=== PATIENT | male | born 1945 | race Two or more races ===

== ENCOUNTER → 2016-07-18 | Outpatient (CLI) | payer MEDICARE, OTHER ==
--- NOTE | 2016-07-18 10:31 | RAD ---
Indication chronic knee pain. AP oblique and lateral views of the right knee were obtained. There is suspect mild bony demineralization. There is medial joint space compartment narrowing. An acute bony finding is not seen. There is some mild patellofemoral narrowing. Significant joint fluid is not seen. IMPRESSION: Degenerative change involving the knee
== END | disposition home or self-care (01) ==
LOC: DXRADRC 10:12
PROVIDERS: ATTEND Physician Assistant Medical
DX: M17.11 Unilateral primary osteoarthritis, right knee (principal)
CPT/HCPCS: 73562

== ENCOUNTER → 2017-01-02 | Outpatient (CLI) | payer MEDICARE, OTHER ==
--- NOTE | 2017-01-02 15:01 | RAD ---
EXAM: Renal/retroperitonal ultrasound HISTORY: Diabetic nephropathy. COMPARISON: None. FINDINGS: Ultrasound of the kidneys, bladder and retroperitoneum was performed. The right kidney measures 11.7 cm. Cortical thickness and echogenicity are preserved. There is no hydronephrosis. A cyst at the lower pole measures 3.1 x 2.6 cm and appears benign. Another smaller cyst at the lower pole measures 1.2 x 1.1 cm. The left kidney measures 11.1 cm. Cortical thickness and echogenicity are preserved. There is no hydronephrosis. A benign appearing cyst in the interpolar region measures 2.3 x 2.0 cm. Images of the bladder reveal no gross abnormality. Ureteral jets are seen bilaterally. IMPRESSION: 1. Unremarkable examination of the kidneys. No hydronephrosis. 2. Bilateral benign-appearing renal cysts measure up to 3.1 cm on the right.
== END | disposition home or self-care (01) ==
LOC: US 08:54
PROVIDERS: ATTEND Internal Medicine Nephrology
DX: E11.21 Type 2 diabetes mellitus with diabetic nephropathy (principal); N28.1 Cyst of kidney, acquired
CPT/HCPCS: 76770

== ENCOUNTER → 2017-11-12 | Outpatient (CLI) | payer MEDICARE, OTHER ==
--- NOTE | 2017-11-12 12:54 | RAD ---
EXAM: Renal sonogram. HISTORY: Renal cyst. TECHNIQUE: Sonographic imaging of the kidneys and bladder was performed. COMPARISON: 01/02/2017. FINDINGS: The right kidney measures 10.8 cm [id number]. The left kidney measures 11.7 cm [id number]. There are simple appearing renal cysts measuring 3.8 cm of the right and 2.8 cm on the left. There is no hydronephrosis. The bladder is decompressed, with a volume of 24 cc. The ureteral jets are not seen during the exam. IMPRESSION: Bilateral renal cysts, slightly increased in size compared to the prior study. Electronically signed by: Selma Syed MD (11/12/2017 12:50 PM) [place] [id number]
== END | disposition home or self-care (01) ==
LOC: US 09:36
PROVIDERS: ATTEND Urology
DX: N28.1 Cyst of kidney, acquired (principal); E11.9 Type 2 diabetes mellitus without complications; M17.11 Unilateral primary osteoarthritis, right knee
CPT/HCPCS: 76770

== ENCOUNTER → 2017-12-24 | Outpatient (CLI) | payer MEDICARE, OTHER ==
--- NOTE | 2017-12-24 17:02 | RAD ---
PA and lateral chest radiograph. History: Cough, right rib contusion. Comparison: October 02, 2016. Findings: Cardiomediastinal silhouette is within normal limits for size. Bilateral lung dejesus appear clear without evidence of infiltrate, effusion, or pneumothorax. Majority of thoracic levels demonstrate bridging osteophytes, suggesting changes of DISH. Impression: 1. No acute cardiopulmonary process. Electronically signed by: Reynaldo Garcia MD (12/24/2017 4:59 PM) [place] [id number]
== END | disposition home or self-care (01) ==
LOC: PMG 12:13
PROVIDERS: ATTEND Family Medicine
DX: S20.211D Contusion of right front wall of thorax, subsequent encounter (principal); M25.78 Osteophyte, vertebrae; R05 Cough; X58.XXXD Exposure to other specified factors, subsequent encounter
CPT/HCPCS: 71046